=== PATIENT | female | born 1995 | race Caucasian/White ===

== ENCOUNTER 2016-06-28 13:00 | Emergency (ER) | payer BC ==
[~2016-06-28] VITALS: Ht 162.6 cm; Wt 62.2 kg
[~2016-06-28 13:00] MED LIST: ASPEC325 PO; OXYC-57 PO; STLS
[2016-06-28 13:06] VITALS: TEMP 36.7; Ht 162.6 cm; Wt 62.2 kg
[2016-06-28] MEDS ORDERED: PANTOprazole INJ 40 MG in SYRINGE 0 ML IV ONE (14:15)
[2016-06-28] MEDS ORDERED: GI COCKTAIL PO ONE (14:15)
[2016-06-28] MEDS ORDERED: ACETTAB PO (14:20)
[2016-06-28] MEDS ORDERED: ONDA4TAB46 PO (14:20)
[2016-06-28] MEDS ORDERED: DICY20TA10 PO (14:20)
[2016-06-28 14:47] LABS: BASO % 0.5 %; BASO ABS # 0.03 K/uL (0-0.2); COMPLETE YES; HEMATOCRIT 38.3 % (37-47); LYMPH % 31.5 %; LYMPH ABS # 1.84 K/uL (1.2-3.4); MEAN CELL VOLUME 89.1 fL (80-100); MEAN CORPUSCULAR HEMOGLOBIN 30.5 pg (25-34); MEAN CORPUSCULAR HGB CONC 34.2 g/dl (32-36); MEAN PLATELET VOLUME 8.7 fL (7.4-10.4); MONO % 6.8 %; NEUT % 60.2 %; PLATELET COUNT 271 K/uL (130-400); WHITE BLOOD COUNT 5.85 K/uL (4.8-10.8)
[2016-06-28 14:47] LABS: URINE APPEARANCE CLEAR (CLEAR); URINE BILIRUBIN NEG (NEG); URINE COLOR YELLOW; URINE EPITHELIAL CELL AUTO >30 /lpf (0-5); URINE NITRITE NEG (NEG); UROBILINOGEN NEG (NEG); ZZUR CULT IF INDIC CLEAN CATCH NO
[2016-06-28 14:59] LABS: MANUAL MICROSCOPIC REQUIRED? NO; REVIEW REQ? NO
[2016-06-28] MEDS ORDERED: ALUMINUM/MAGNESIUM SUSP 30 ML UDC ONE (15:02)
[2016-06-28] MEDS ORDERED: LIDOCAINE HCL 2% VISC SOLN 20 ML UDC ONE (15:02)
[2016-06-28 15:09] LABS: BUN/CREATININE RATIO 11.8 (10-20); CREATININE 0.87 mg/dl (0.60-1.20); POTASSIUM 3.7 mmol/L (3.5-5.1)
[2016-06-28 15:20] LABS: ALB/GLOB RATIO 1.1 (0.9-2); THYROID STIMULATING HORMONE 1.57 uIu/ml (0.300-4.500)
--- NOTE | 2016-06-28 15:31 | DIAGNOSTIC IMAGING REPORT ---
ABDOMEN 2VIEW W/PA CHEST RTN CLINICAL HISTORY: Epigastric pain left upper quadrant abdominal pain, diarrhea. COMPARISON STUDY: No previous studies for comparison. FINDINGS: The erect chest reveals no evidence of free air. There is no evidence of focal pulmonary consolidation.] Erect and supine views of the abdomen reveal no abnormally dilated loops of large or small bowel. There are no transition zone to indicate bowel obstruction. There are few nonspecific pelvic basin calcifications, likely representing phleboliths. There are equivocal erosive changes involving the left at SI joint. IMPRESSION: 1. No evidence of bowel obstruction. No evidence of free air 2. Equivocal left sacroiliitis. Electronically signed by: Lauri Almeida M.D. 06/28/2016 3:29 PM Dictated Date/Time: 06/28/2016 3:28 PM
--- NOTE | 2016-06-28 16:02 | EMERGENCY ROOM VISIT NOTE ---
History First contact with patient: 13:47 Chief Complaint: ABDOMINAL PAIN Stated Complaint: STOMACH PAIN, CHEST AND BACK PAIN Nursing Triage Summary: triage note: Pt ambulatory to triage. pt reports "i have had for the past day terrible stomach pains in the center of my stomach." pt reports nausea. pt reports diarrhea since this am two episodes. pt also reports since this am she has had some left upper rib pain. pt denies any shortness of breath. pt reports she started control pills two months ago. pt reports "my boobs really hurt over the past week they have been sore." History of Present Illness The patient is a 21 year old female who presents to the Emergency Room with complaints of epigastric and left upper quadrant abdominal pain for the past one day. The patient has been nauseated without vomiting. She has had similar symptoms about 1 month ago, and was seen by her family doctor. She was given Bentyl and Zofran at that visit, and she did take those today without significant improvement of symptoms. The patient has not had fever or chills. She states that the pain will sometimes go into her back on the left side, and cause her some chest discomfort. She has not had coughing or wheezing. No recent travel history. She recently started control pills. She does not have lower extremity discomfort or history of DVT/PE. The patient is also complaining of intermittent bilateral breast pain, that appears cyclic in nature as it occurred about this time 1 month ago as well. The patient has not had vaginal drainage, discharge, or bleeding. She denies . She rates her current discomfort a 5/10. Review of Systems More than 10 systems were reviewed and otherwise negative with the exception of history of present illness. Past Medical/Surgical History No chronic medical disease Family History No pertinent family history Social History Smoking Status: Never Smoker Housing Status: lives with family Current/Historical Medications Scheduled PRN Rwnktuhiazfcu-Rjxnevkn-Manyzsn (Pamprin Multi-Symptom), 1 TAB PO UD PRN for CRAMPS Dicyclomine Hcl (Dicyclomine Hcl), 20 MG PO Q6H PRN for STOMACH CRAMPING Ondansetron Hcl (Zofran), 4 MG PO Q6 PRN for Nausea Allergies Coded Allergies: No Known Allergies (Unverified , 09/08/10) Physical Exam Vital Signs Date Time Temp Pulse Resp B/P Pulse Ox O2 Delivery O2 Flow Rate FiO2 1/23/17 15:14 67 16 99/69 100 Room Air 06/28/16 13:06 36.7 60 18 127/79 99 Room Air Physical Exam VITALS: Vitals are noted on the nurse's note and reviewed by myself. Vital signs stable. GENERAL: Well-developed, well-nourished, female, who is in no acute distress and resting comfortably. Patient is cooperative with the examination. HEAD: Normocephalic atraumatic. EARS: External ear normal. External auditory canals clear, tympanic membranes pearly de [place] without erythema or effusion bilaterally. EYES: Pupils equal round and reactive to light and accommodation. Conjunctivae without injection, sclerae without icterus. Extraocular movements intact. NOSE: Patent, turbinates without inflammation or discharge. MOUTH: Mucous membranes moist. Tonsils are not enlarged. Pharynx without erythema, blood, or exudate. Uvula midline. Airway patent. NECK: Supple without nuchal rigidity. No lymphadenopathy. No thyromegaly. Cervical spine is nontender. HEART: Regular rate and rhythm without murmurs gallops or rubs. LUNGS: Clear to auscultation bilaterally without wheezes, rales or rhonchi. No retractions or accessory muscle use. ABDOMEN: Positive normal bowel sounds x 4. Soft with mild epigastric and left upper quadrant tenderness on palpation. No rebound or guarding. No lower abdominal tenderness. No CVA tenderness. MUSCULOSKELETAL: No muscle atrophy, erythema, or edema noted. Full range of motion without joint tenderness in all extremities. Medical Decision & Procedures ER Provider Diagnostic Interpretation: ABDOMEN 2VIEW W/PA CHEST RTN CLINICAL HISTORY: Epigastric pain left upper quadrant abdominal pain, diarrhea. COMPARISON STUDY: No previous studies for comparison. FINDINGS: The erect chest reveals no evidence of free air. There is no evidence of focal pulmonary consolidation.] Erect and supine views of the abdomen reveal no abnormally dilated loops of large or small bowel. There are no transition zone to indicate bowel obstruction. There are few nonspecific pelvic basin calcifications, likely representing phleboliths. There are equivocal erosive changes involving the left at SI joint. IMPRESSION: 1. No evidence of bowel obstruction. No evidence of free air 2. Equivocal left sacroiliitis. Laboratory Results 06/28/16 14:36 Red Blood Count 4.30, Mean Corpuscular Volume 89.1, Mean Corpuscular Hemoglobin 30.5, Mean Corpuscular Hemoglobin Concent 34.2, Mean Platelet Volume 8.7, Neutrophils (%) (Auto) 60.2, Lymphocytes (%) (Auto) 31.5, Monocytes (%) (Auto) 6.8, Eosinophils (%) (Auto) 1.0, Basophils (%) (Auto) 0.5, Neutrophils # (Auto) 3.52, Lymphocytes # (Auto) 1.84, Monocytes # (Auto) 0.40, Eosinophils # (Auto) 0.06, Basophils # (Auto) 0.03 06/28/16 14:36 Test 06/28/16 13:55 06/28/16 14:36 06/28/16 14:43 Urine Color YELLOW Urine Appearance CLEAR (CLEAR) Urine pH 6.0 (4.5-7.5) Urine Specific [place] 1.010 (1.000-1.030) Urine Protein NEG (NEG) Urine Glucose (UA) NEG (NEG) Urine Ketones NEG (NEG) Urine Occult Blood TRACE (NEG) Urine Nitrite NEG (NEG) Urine Bilirubin NEG (NEG) Urine Urobilinogen NEG (NEG) Urine Leukocyte Esterase NEG (NEG) Urine WBC (Auto) 1-5 /hpf (0-5) Urine RBC (Auto) 0-4 /hpf (0-4) Urine Hyaline Casts (Auto) 0 /lpf (0-5) Urine Epithelial Cells (Auto) >30 /lpf (0-5) Urine Bacteria (Auto) NEG (NEG) Urine Test NEG (NEG) White Blood Count 5.85 K/uL (4.8-10.8) Red Blood Count 4.30 M/uL (4.2-5.4) Hemoglobin 13.1 g/dL (12.0-16.0) Hematocrit 38.3 % (37-47) Mean Corpuscular Volume 89.1 fL (80-100) Mean Corpuscular Hemoglobin 30.5 pg (25-34) Mean Corpuscular Hemoglobin Concent 34.2 g/dl (32-36) Platelet Count 271 K/uL (130-400) Mean Platelet Volume 8.7 fL (7.4-10.4) Neutrophils (%) (Auto) 60.2 % Lymphocytes (%) (Auto) 31.5 % Monocytes (%) (Auto) 6.8 % Eosinophils (%) (Auto) 1.0 % Basophils (%) (Auto) 0.5 % Neutrophils # (Auto) 3.52 K/uL (1.4-6.5) Lymphocytes # (Auto) 1.84 K/uL (1.2-3.4) Monocytes # (Auto) 0.40 K/uL (0.11-0.59) Eosinophils # (Auto) 0.06 K/uL (0-0.5) Basophils # (Auto) 0.03 K/uL (0-0.2) RDW Standard Deviation 39.7 fL (36.4-46.3) RDW Coefficient of Variation 12.3 % (11.5-14.5) Immature Granulocyte % (Auto) 0.0 % Immature Granulocyte # (Auto) 0.00 K/uL (0.00-0.02) Anion Gap 9.0 mmol/L (3-11) Est Creatinine Clear Calc Drug Dose 88.4 ml/min Estimated GFR () 110.4 Estimated GFR (Non- 95.2 BUN/Creatinine Ratio 11.8 (10-20) Calcium Level 9.0 mg/dl (8.5-10.1) Total Bilirubin 0.5 mg/dl (0.2-1) Aspartate Amino Transf (AST/SGOT) 13 U/L (15-37) Alanine Aminotransferase (ALT/SGPT) 18 U/L (12-78) Alkaline Phosphatase 45 U/L (45-117) Total Protein 8.0 gm/dl (6.4-8.2) Albumin 4.2 gm/dl (3.4-5.0) Globulin 3.8 gm/dl (2.5-4.0) Albumin/Globulin Ratio 1.1 (0.9-2) Lipase 216 U/L (73-393) Thyroid Stimulating Hormone (TSH) 1.570 uIu/ml (0.300-4.500) Monoscreen NEG (NEG) Bedside D-Dimer 90 ng/mlFEU (0-450) Bedside Troponin I 0.000 ng/ml (0-0.045) Medications Administered Medications (Trade) Dose Ordered Sig/Amando Route Start Time Stop Time Status Last Admin Dose Admin Pantoprazole Sodium/Syringe (Protonix Inj/ Syringe) 10 ml @ 5 mls/min NOW ONCE IV 06/28/16 14:15 06/28/16 14:16 DC 06/28/16 15:06 5 MLS/MIN Lidocaine HCl (Viscous Lidocaine 2% Soln) 20 ml STK-MED ONCE .ROUTE 06/28/16 15:02 06/28/16 15:04 DC 06/28/16 15:06 20 ML Al Hydroxide/Mg Hydroxide (Maalox Susp) 30 ml STK-MED ONCE .ROUTE 06/28/16 15:02 06/28/16 15:05 DC 06/28/16 15:06 30 ML ED Course Physical exam and history were performed. Nursing notes and EMR were reviewed. Patient appears to have epigastric into the left upper quadrant abdominal pain. The patient has had these symptoms each of the past few months about 1 month apart. She is recently on control for the first time, and this appears to be causing her some bilateral breast pain towards the end of the control cycle. The patient does have some mild epigastric tenderness on palpation, but her exam is otherwise unremarkable. She certainly does not appear toxic. IV access was established and labs were obtained. The patient was hydrated with normal saline. She was given a GI cocktail and Protonix here in the department. Plain films were performed. The patient's blood work is as above and was reviewed. She does not have a significant elevated white blood cell count, anemia, bandemia, or gross electrolyte imbalance. Lipase and transaminases are nondiagnostic. Monospot is negative. Urinalysis shows ketones, but no other significant findings. X- ray is without significant acute findings within the chest or abdomen. On reevaluation the patient had some improvement of her epigastric discomfort. She does not have worsening of her symptoms while under our care. I discussed the case with my attending physician, and overall the patient appears stable for discharge home. Clinically I suspect a gastritis as a primary cause of her symptoms. I recommend that she follow with her PCP in the next 1-2 days for recheck of her abdomen. She may also wish to follow with [facility] for her control needs. I thoroughly recommended the patient return to the emergency department with any new, worsening, or concerning symptoms. The patient was pleased with plan of care and voiced understanding. She rated her discomfort a 0/10 at the time of her departure. The chart was completed utilizing [employer] Voice Recognition Software. Grammatical errors, random word insertions, pronoun errors, and incomplete sentences are an occasional consequence of this system due to software limitations, ambient noise, and hardware issues. Any formal questions or concerns about the content, text, or information contained within the body of this dictation should be directly addressed to the provider for clarification. . Medical Decision Differential diagnosis: Etiologies such as gastritis, PE, appendicitis, diverticulitis, PUD, biliary pathology, UTI, pancreatitis, obstruction, mesenteric ischemia, aortic pathology , infections, inflammatory bowel disease, renal colic, as well as others were entertained. Impression Primary Impression: Epigastric abdominal pain Departure Information Dispostion Home / Self-Care Condition GOOD Referrals No Doctor, Assigned (PCP) Patient Instructions My [facility] Additional Instructions You were seen and evaluated today on an emergency basis only. This is not a substitute for, or an effort to provide, complete comprehensive medical care. It is not possible to recognize and treat all injuries or illnesses in a single emergency department visit. For this reason it is recommended that you followup with your primary care physician in the next 1-2 days for recheck of your condition. It is also recommended that you follow-up with [facility]. Many of your symptoms may be the result of your oral contraceptive pill. You may wish to change to an alternative control. This can be discussed with [facility]. You are welcome to return to the emergency department anytime with new, worsening, or concerning symptoms.
[2016-06-28 16:26] VITALS: BP 106/66; PULSE 89; O2SAT 98
== END 2016-06-28 16:39 | disposition home or self-care (01) ==
LOC: C.EDB 13:01 → C.EDC 16:39
DX: R10.13 Epigastric pain (principal); Z79.3 Long term (current) use of hormonal contraceptives